=== PATIENT | male | born 1985 | race Hispanic/Latino ===

== ENCOUNTER 2023-02-02 22:47 | Emergency (ER) | payer OTHER ==
[2023-02-02 23:38] LABS: Urine Blood 2+ (Negative); Urine Glucose Negative (Negative); Urine Protein Negative (Negative)
[2023-02-02] MEDS ORDERED: KETOROLAC 30 MG/ML INJ ONE (23:45)
[2023-02-02] MEDS ORDERED: ONDANSETRON 4 MG/2 ML VIAL ONE (23:45)
[2023-02-02] MEDS ORDERED: DICYCLOMINE HCL 20 MG/2 ML AMP IM ONE (23:45)
[2023-02-02] MEDS ORDERED: TRAMADOL HCL 50 MG TAB ONE (23:45)
[2023-02-03 00:57] LABS: MPV 10.1 fL (7.6-11.3)
[2023-02-03 01:01] LABS: Specific Gravity 1.013 (1.005-1.030); Urine Bacteria None Seen /HPF (<20); Urine Bilirubin NEGATIVE (Negative); Urine Blood 1+ (Negative); Urine Clarity Clear (Clear); Urine Color Light-Yellow (Yellow); Urine Glucose NEGATIVE (Negative); Urine Mucus Slight /HPF (None Seen); Urine Protein NEGATIVE (Negative); Urine Urobilinogen Normal (Normal)
[2023-02-03 01:03] LABS: Absolute Lymphocytes (CBC) 2.3 K/uL (0.7-4.9); Hematocrit 41.9 % (39.6-49.0); Lymphocytes % 29.2 % (15.3-44.8); MCV 89.2 fL (80-100)
[2023-02-03 01:06] LABS: Albumin 3.7 g/dL (3.4-5.0); Bilirubin Total 0.7 mg/dL (0.2-1.0); Potassium 3.5 mmol/L (3.5-5.1); Protein, Total 7.2 g/dL (6.4-8.2)
--- NOTE | 2023-02-03 01:36 | EDPHYS ---
Physician Documentation [facility] Name: Zohaib Monroy Age: 37 yrs Sex: Male : 1985 Arrival Date: 02/02/2023 Time: 22:50 Bed 4 Private MD: ED Physician Scott Ro HPI: 02/02 23:00 This 37 yrs old Male presents to ER via Ambulatory with complaints of sp4 Abdominal Pain, Body Aches. 23:00 37-year-old male presents with abdominal pain and body aches. sp4 02/03 00:28 Patient reports he has developed body aches fever and lower abdominal pain also sp4 periumbilical abdominal pain starting yesterday, without vomiting or shortness of breath, patient states his fever went away but lower abdominal and periumbilical pain is persistent. Patient denied any diarrhea, denied bloody stool, denied vomiting, denied nausea.. Historical: - Allergies: 02/02 22:56 No Known Allergies; mb9 - Home Meds: 22:56 None [Active]; mb9 - PMHx: 22:56 None; mb9 - PSHx: 22:56 Appendectomy; mb9 - Immunization history:: Adult Immunizations up to date. - Social history:: Smoking status: Patient denies any tobacco usage or history of. - Family history:: not pertinent. ROS: 02/03 00:28 Constitutional: Negative for fever, chills, and weight loss, Eyes: Negative for injury, sp4 pain, redness, and discharge, ENT: Negative for injury, pain, and discharge, Neck: Negative for injury, pain, and swelling, Cardiovascular: Negative for chest pain, palpitations, and edema, Respiratory: Negative for shortness of breath, cough, wheezing, and pleuritic chest pain, Abdomen/GI: Negative for nausea, vomiting, diarrhea, and constipation, positive for periumbilical pain and lower abdominal pain Back: Negative for injury and pain, : Negative for injury, bleeding, discharge, and swelling, MS/Extremity: Negative for injury and deformity, Skin: Negative for injury, rash, and discoloration, Neuro: Negative for headache, weakness, numbness, tingling, and seizure, Psych: Negative for depression, anxiety, Allergy/Immunology: Negative for hives, rash, and allergies, Endocrine: Negative for neck swelling, polydipsia, polyuria, polyphagia, and weight changes Hematologic/Lymphatic: Negative for swollen nodes, abnormal bleeding, and unusual bruising Exam: 00:28 Constitutional: This is a well developed, well nourished patient who is awake, alert, sp4 and in no acute distress. Head/Face: Normocephalic, atraumatic. Eyes: Pupils equal round and reactive to light, extra-ocular motions intact. Lids and lashes normal. Conjunctiva and sclera are not injected. Cornea within normal limits. Periorbital areas with no swelling, redness, or edema. 00:28 ENT: Nares patent. No nasal discharge, no septal abnormalities noted. Tympanic sp4 membranes are normal and external auditory canals are clear. Oropharynx with no redness, swelling, or masses, exudates, or evidence of obstruction, uvula midline. Mucous membranes moist. Neck: Trachea midline, no thyromegaly or masses palpated, and no cervical lymphadenopathy. Supple, full range of motion without nuchal rigidity, or vertebral point tenderness. No Meningismus. Chest/axilla: Normal chest wall appearance and motion. Nontender. No lesions are appreciated. Cardiovascular: Regular rate and rhythm with a normal S1 and S2. No gallops, murmurs, or rubs. Normal PMI, no JVD. No pulse deficits. Respiratory: Lungs have equal breath sounds bilaterally, clear to auscultation and percussion. No rales, rhonchi or wheezes noted. No increased work of breathing, no retractions or nasal flaring. Abdomen/GI: Soft, with normal bowel sounds. No distension or tympany. No guarding or rebound. No evidence of tenderness throughout. Bilateral lower abdominal tenderness, and suprapubic tenderness elicited on exam without rebound Back: No spinal tenderness. No costovertebral tenderness. Skin: Warm, dry with normal turgor. Normal color with no rashes, no lesions, and no evidence of cellulitis. MS/ Extremity: Pulses equal, no cyanosis. Neurovascular intact. Full, normal range of motion. Neuro: Awake and alert, GCS 15, oriented to person, place, time, and situation. Cranial nerves II-XII grossly intact. Motor strength 5/5 in all extremities. Sensory grossly intact. Psych: Awake, alert, with orientation to person, place and time. Behavior, mood, and affect are within normal limits. Vital Signs: 02/02 22:54 BP 127 / 81; Pulse 88; Resp 16; Temp 98.2(O); Pulse Ox 99% on R/A; Weight 77.11 kg; mb9 Height 5 ft. 11 in. ; Pain 8/10; 23:51 BP 118 / 76; Pulse 80; Resp 18 S; Pulse Ox 98% on R/A; as6 02/03 00:59 BP 117 / 77; Pulse 65; Resp 16 S; Pulse Ox 96% on R/A; as6 02/02 22:54 Body Mass Index 23.71 (77.11 kg, 180.34 cm) mb9 02/02 22:54 Pain Scale: Adult mb9 MDM: 02/02 23:22 Patient medically screened. 4 02/03 01:33 Differential Diagnosis flu, Viral gastroenteritis, bacterial gastroenteritis, acute sp4 diverticulitis, acute obstructed bowel, paralytic ileus, abdominal adhesions. Data reviewed: vital signs, nurses notes, lab test result(s), CBC, electrolytes, hepatic panel, urinalysis, radiologic studies, CT scan. Consideration of Admission/Observation Patient was admitted/placed on observation. Escalation of care including admission/observation considered. ED course: CAT scan revealed nonspecific mild fluid-filled small bowel loops, differential includes ileus or enteritis, no additional potential acute abnormality identified. 02/02 23:23 Order name: IV Saline Lock; Complete Time: 23:37 sp4 02/02 23:23 Order name: Labs collected and sent; Complete Time: 23:37 4 02/02 23:23 Order name: CT Abd/Pelvis - Without Contrast sp4 02/02 23:23 Order name: CBC with Diff; Complete Time: 01:30 sp4 02/02 23:23 Order name: CMP; Complete Time: 01:30 sp4 02/02 23:24 Order name: Urinalysis W/Microscopic; Complete Time: 01:30 sp4 02/02 23:23 Order name: Lipase; Complete Time: 01:30 sp4 02/02 23:39 Order name: Urine Dipstick-Ancillary; Complete Time: 00:32 EDMS Administered Medications: 02/02 23:40 Drug: traMADol PO 50 mg Route: PO; 23:42 Drug: Ondansetron IVP 4 mg Route: IVP; Site: left antecubital; as6 23:43 Drug: Dicyclomine IM 20 mg Route: IM; Site: left ventrogluteal; as6 23:43 Drug: TORadol - Ketorolac IVP 15 mg Route: IVP; Site: left antecubital; as6 Disposition Summary: 02/03/23 01:36 Discharge Ordered Location: Home sp4 Problem: new sp4 Symptoms: have improved sp4 Condition: Stable sp4 Diagnosis - Other viral enteritis sp4 - Acute enteritis, nausea, acute viral illness sp4 Followup: sp4 - With: Private Physician - When: As needed - Reason: Forms: - Medication Reconciliation Form sp4 - Thank You Letter sp4 - Antibiotic Education sp4 - Prescription Opioid Use sp4 Signatures: Dispatcher [employer] Nikhil Noriega RN RN as6 Phoebe Hanks RN RN mb9 Scott Ro MD MD sp4
--- NOTE | 2023-02-03 01:36 | ER ---
Nurse's Notes [facility] [place] Name: Zohaib Monroy Age: 37 yrs Sex: Male : 1985 Arrival Date: 02/02/2023 Time: 22:50 Bed 4 Private MD: Diagnosis: Other viral enteritis;Acute enteritis, nausea, acute viral illness Presentation: 02/02 22:54 Chief complaint: Patient states: "For the past couple days, I started feeling sick like mb9 flu like symptoms. It went away but I started having pain in my lower stomach and throwing up. I can't keep food down. I've been having a little bit of diarrhea. I haven't had pain like this before.". Coronavirus screen: Vaccine status: Patient reports receiving the 2nd dose of the covid vaccine. Ebola Screen: No symptoms or risks identified at this time. Initial Sepsis Screen: Does the patient meet any 2 criteria? No. Patient's initial sepsis screen is negative. Does the patient have a suspected source of infection? No. Patient's initial sepsis screen is negative. Risk Assessment: Do you want to hurt yourself or someone else? Patient reports no desire to harm self or others. Onset of symptoms was February 02, 2023. 22:54 Method Of Arrival: Ambulatory mb9 22:54 Acuity: HALLE 3 mb9 Historical: - Allergies: 22:56 No Known Allergies; mb9 - Home Meds: 22:56 None [Active]; mb9 - PMHx: 22:56 None; mb9 - PSHx: 22:56 Appendectomy; mb9 - Immunization history:: Adult Immunizations up to date. - Social history:: Smoking status: Patient denies any tobacco usage or history of. - Family history:: not pertinent. Screenin:[facility] ED Fall Risk Assessment (Adult) History of falling in the last 3 months, mb9 including since admission No falls in past 3 months (0 pts) Confusion or Disorientation No (0 pts) Intoxicated or Sedated No (0 pts) Impaired Gait No (0 pts) Mobility Assist Device Used No (0 pt) Altered Elimination No (0 pt) Score/Fall Risk Level 0 - 2 = Low Risk Oriented to surroundings, Maintained a safe environment, Educated pt \\T\\ family on fall prevention, incl call for assistance when getting out of bed. Abuse screen: Denies threats or abuse. Nutritional screening: No deficits noted. Tuberculosis screening: No symptoms or risk factors identified. Assessment: 23:49 General: Appears in no apparent distress. Behavior is calm, cooperative. Pain: as6 Complains of pain in abdomen. Neuro: Level of Consciousness is awake, alert, obeys commands, Oriented to person, place, time. Cardiovascular: Capillary refill < 3 seconds Patient's skin is warm and dry. Respiratory: Respiratory effort is even, unlabored, Respiratory pattern is regular, symmetrical. GI: Reports lower abdominal pain, upper abdominal pain, diarrhea, nausea. 02/03 00:59 Reassessment: Patient appears in no apparent distress at this time. Patient and/or as6 family updated on plan of care and expected duration. Pain level reassessed. Patient is alert, oriented x 3, equal unlabored respirations, skin warm/dry/pink. Patient states feeling better. Vital Signs: 02/02 22:54 BP 127 / 81; Pulse 88; Resp 16; Temp 98.2(O); Pulse Ox 99% on R/A; Weight 77.11 kg; mb9 Height 5 ft. 11 in. ; Pain 8/10; 23:51 BP 118 / 76; Pulse 80; Resp 18 S; Pulse Ox 98% on R/A; as6 02/03 00:59 BP 117 / 77; Pulse 65; Resp 16 S; Pulse Ox 96% on R/A; as6 02/02 22:54 Body Mass Index 23.71 (77.11 kg, 180.34 cm) mb9 02/02 22:54 Pain Scale: Adult mb9 ED Course: 02/02 22:50 Patient arrived in ED. ja2 22:56 Triage completed. mb9 22:56 Arm band placed on. mb9 22:59 Scott Ro MD is Attending Physician. sp4 23:01 Bed in low position. Call light in reach. Side rails up X 1. Client placed on mb9 continuous cardiac and pulse oximetry monitoring. NIBP monitoring applied. Door closed. Noise minimized. Warm blanket given. 23:14 Nikhil Jackson, TANO is Primary Nurse. as6 23:37 Urinalysis W/Microscopic Sent. as6 23:37 CBC with Diff Sent. as6 23:37 CMP Sent. as6 23:37 Lipase Sent. as6 23:37 Inserted saline lock: 20 gauge in left antecubital area, using aseptic technique. Blood as6 collected. 02/03 00:14 CT Abd/Pelvis - Without Contrast In Process Unspecified. EDMS Administered Medications: 02/02 23:40 Drug: traMADol PO 50 mg Route: PO; as6 23:42 Drug: Ondansetron IVP 4 mg Route: IVP; Site: left antecubital; as6 23:43 Drug: Dicyclomine IM 20 mg Route: IM; Site: left ventrogluteal; as6 23:43 Drug: TORadol - Ketorolac IVP 15 mg Route: IVP; Site: left antecubital; as6 Medication: 22:56 VIS not applicable for this client. mb9 Outcome: 02/03 01:36 Discharge ordered by MD. pack4 Signatures: Dispatcher [employer] EDMS Amor EdaNikhil Middleton RN RN as6 Phoebe Hanks RN RN mb9 Scott Ro MD MD sp4 Corrections: (The following items were deleted from the chart) 02/02 23:01 22:54 Chief complaint: Patient states: "For the past couple days, I started feeling mb9 sick like flu like symptoms. It went away but I started having pain in my lower stomach and throwing up. I can't keep food down. I've been having a little bit of diarrhea." mb9
[2023-02-03 10:31] VITALS: TEMP 98.2
[2023-02-03 10:34] VITALS: O2SAT 96
[2023-02-03 10:35] VITALS: BP 121/80
--- NOTE | 2023-02-03 11:44 | RAD REPORT ---
EXAM DESCRIPTION: CT - Abdomen Pelvis Wo Contrast - 02/03/2023 6:24 am CLINICAL HISTORY: Lower abd pain. COMPARISON: None. TECHNIQUE: Serial axial CT images were obtained from above the diaphragm through the pubic symphysis without administration of intravenous or oral contrast. All CT scans are performed using dose optimization techniques as appropriate, including automated exp osure control and/or standardized protocols, where dose is adjusted for indication for exam and body habitus. FINDINGS: Thoracic: No significant abnormality. Hepatobiliary: No obvious concerning hepatic lesion identified in the absence of intravenous contrast . The gallbladder is unremarkable. No biliary ductal dilatation. Pancreas: Unremarkable. Spleen: Unremarkable. Gastrointestinal: Nonspecific mild fluid-filled small bowel loops with no evidence specific for obstr uction. No perienteric inflammation. The appendix is nonvisualized, but there are no pericecal inflam matory changes identified. Small to moderate amount of fecal material throughout the colon. Adrenals: No abnormality identified in either adrenal gland. Renal: No obvious parenchymal abnormality in either kidney in the absence of intravenous contrast. No hydronephrosis or urolithiasis. Bladder/Reproductive: Unremarkable appearance of the urinary bladder by CT technique. Vascular/Lymphatics: No lymphadenopathy identified by CT size criteria. Abdominal aorta is normal in caliber. Musculoskeletal: No concerning osseous lesion identified. Fluid / peritoneum: No significant free fluid. No free intraperitoneal air identified. IMPRESSION: 1. Nonspecific mild fluid-filled small bowel loops. Differential includes ileus/enteri tis, versus early small bowel obstruction in the appropriate clinical setting. 2. No additional potential acute abnormality identified. Electronically signed by: Tiffanie Johnson MD 02/03/2023 12:24 AM CDT Due to temporary technical issues with the PACS/Fluency reporting system, reports are being signed by the in house radiologists without review as a courtesy to insure prompt reporting. The interpreting radiologist is fully responsible for the content of the report.
== END 2023-02-03 01:43 | disposition home or self-care (01) ==
LOC: ER 22:47
DX: A08.39 Other viral enteritis (principal); R11.0 Nausea
CPT/HCPCS: 85025; 81001; 36415; 81003; 83690; 80053; 74176; 96375; 96372; 96374; 99284; J0500; J2405